=== PATIENT | female | born 1960 | race Caucasian/White ===

== ENCOUNTER 2020-11-20 18:43 | Emergency (ER) | payer OTHER ==
--- NOTE | 2020-11-20 19:52 | EDM.PDOC ---
ED HPI GENERAL MEDICAL PROBLEM - General Chief Complaint: Upper Extremity Injury/Pain Stated Complaint: FINGERS BENT BACK, RIGHT HAND SWOLLEN Time Seen by Provider: 11/20/20 19:21 Source of Information: Reports: Patient, Family, RN Notes Reviewed History Limitations: Reports: No Limitations - History of Present Illness INITIAL COMMENTS - FREE TEXT/NARRATIVE: 60-year-old female presents emergency department day with right hand pain she fell last night in the bending her fingers on her right hand and now she has significant pain and swelling in the hand she still can move her digits however it is limited by pain Right Hand Pain Score (Numeric/FACES): 8 - Related Data Allergies Allergy/AdvReac Type Severity Reaction Status Date / Time amoxicillin [From Augmentin] Allergy Itching Verified 11/20/20 19:25 clavulanic acid Allergy Itching Verified 11/20/20 19:25 [From Augmentin] Home Meds: Home Meds Aspirin 325 mg PO DAILY 11/20/20 [History] Escitalopram Oxalate 20 mg PO DAILY 11/20/20 [History] Loratadine [Claritin] 10 mg PO DAILY 11/20/20 [History] Metoprolol Succinate 50 mg PO DAILY 11/20/20 [History] Omeprazole 20 mg PO TID 11/20/20 [History] Pravastatin Sodium [Pravastatin (Pravachol)] 20 mg PO DAILY 11/20/20 [History] busPIRone [Buspar] 5 mg PO DAILY 11/20/20 [History] Past Medical History Cardiovascular History: Reports: High Cholesterol, Hypertension Gastrointestinal History: Reports: GERD [employer] History: Reports: Musculoskeletal History: Reports: Arthritis Other Neuro History: hemmoragic stroke - Infectious Disease History Infectious Disease History: Reports: Chicken Pox, Influenza - Past Surgical History HEENT Surgical History: Reports: Tonsillectomy Cardiovascular Surgical History: Reports: None GI Surgical History: Reports: None Female Surgical History: Reports: None Other Neurological Surgeries/Procedures: stent and coil Musculoskeletal Surgical History: Reports: Knee Replacement Other Musculoskeletal Surgeries/Procedures:: right Social & Family History - Tobacco Use Tobacco Use Status *Q: Current Every Day Tobacco User Years of Tobacco use: 42 Packs/Tins Daily: 0.5 - Caffeine Use Caffeine Use: Reports: Coffee, Soda - Recreational Drug Use Recreational Drug Use: No Review of Systems - Review of Systems Review Of Systems: See Below Musculoskeletal: Reports: Hand Pain Skin: Reports: Change in Color ED EXAM, GENERAL - Physical Exam Exam: See Below Free Text/Narrative:: Examination the right hand I do appreciate edema over the entire hand she has limited range of motion of all digits secondary to pain radial pulses +2 there is no tenderness at the elbow sensation is intact Course - Vital Signs Last Recorded V/S: Last Vital Signs Temp 97.3 F 11/20/20 19:24 Pulse 65 11/20/20 19:24 Resp 16 11/20/20 19:24 BP 141/78 H 11/20/20 19:24 Pulse Ox 97 11/20/20 19:24 - Orders/Labs/Meds Orders: Active Orders 24 hr Category Date Time Status Hand Comp Min 3V Rt [CR] Stat Exams 11/20/20 19:50 Taken Departure - Departure Time of Disposition: 20:24 Disposition: Home, Self-Care 01 Condition: Fair Clinical Impression: Sprain of right hand Qualifiers: Encounter type: initial encounter Qualified Code(s): S63.91XA - Sprain of unspecified part of right wrist and hand, initial encounter - Discharge Information Referrals: PCP,None [Primary Care Provider] - Forms: ED Department Discharge Additional Instructions: Continue to use a splint as needed for pain control, use anti-inflammatories such as Motrin or Tylenol for pain control, use the hydrocodone for breakthrough pain, please followup with your primary care provider in 3-5 days if not better, please call return to the emergency department with worsening of symptoms. Sepsis Event Note (ED) - Evaluation Sepsis Screening Result: No Definite Risk - Focused Exam Vital Signs: Vital Signs Temp Pulse Resp BP Pulse Ox 11/20/20 19:24 97.3 F 65 16 141/78 H 97 11/20/20 19:15 97.3 F 65 16 141/78 H 97 - My Orders Last 24 Hours: My Active Orders 11/20/20 19:50 Hand Comp Min 3V Rt [CR] Stat - Assessment/Plan Last 24 Hours: My Active Orders 11/20/20 19:50 Hand Comp Min 3V Rt [CR] Stat Plan: Assessment Acuity = acute Site and laterality = right hand sprain Etiology = secondary to fall Manifestations = edema Location of injury = Home Lab values = x-ray hand I did review films myself I cannot appreciate any acute process, the official read from radiology is pending Plan Rest ice anti-inflammatories prescription written for hydrocodone 5/325 1 tab p.o. 3 times daily. Total #4 follow-up primary care 3 This note was dictated using [employer] voice recognition software please call with any questions on syntax or grammar.
--- NOTE | 2020-11-22 09:26 | CR ---
Hand Comp Min 3V Rt CLINICAL HISTORY: Fall, pain FINDINGS: There is no acute fracture or dislocation of the hand. There is mild periarticular spurring. Impression: No fracture or dislocation. Mild degenerative changes described
== END 2020-11-20 21:08 | disposition home or self-care (01) ==
LOC: JP.ED 18:43
DX: S63.91XA Sprain of unspecified part of right wrist and hand, initial encounter (principal); E78.00 Pure hypercholesterolemia, unspecified; I10 Essential (primary) hypertension; K21.9 Gastro-esophageal reflux disease without esophagitis; Z79.899 Other long term (current) drug therapy; Z88.0 Allergy status to penicillin; Z72.0 Tobacco use; W18.39XA Other fall on same level, initial encounter; X50.1XXA Overexertion from prolonged static or awkward postures, initial encounter
CPT/HCPCS: 73130-26-RT; 73130-RT; 99283